=== PATIENT | male | born 1975 | race Caucasian/White ===

== ENCOUNTER → 2016-03-07 | Outpatient (CLI) | payer BC ==
[~2016-03-07] VITALS: Ht 170.2 cm; Wt 145.0 kg
[~2016-03-07] MED LIST: LISINOPRIL20 MG PO; METOPROLOL TART25 MG PO; NIACIN500 M4 PO
== END | disposition home or self-care (01) ==
LOC: AMB 11:50
PROC: B246ZZ4 Ultrasonography of Right and Left Heart, Transesophageal (ICD-10-PCS; principal; 2016-03-07)
DX: I35.1 Nonrheumatic aortic (valve) insufficiency (principal); I34.0 Nonrheumatic mitral (valve) insufficiency; I71.2 Thoracic aortic aneurysm, without rupture; I10 Essential (primary) hypertension
CPT/HCPCS: 93312